=== PATIENT | female | born 1965 | race American Indian/Alaskan Native ===

== ENCOUNTER 2023-02-22 13:24 | Outpatient (AMB) | payer OTHER, SELFPAY ==
--- NOTE | 2023-02-22 14:20 | MHC.OFFWIV ---
Intake Vital Signs 02/22/23 14:26 Height 5 ft 6.5 in Weight 200 lb BMI 31.8 BP 110/62 Blood Pressure Location Rt brachial Position Sitting Pulse 81 Pulse Source Pulse Oximeter Temp 96.7 F L Temp Source Temporal Artery Scan Pulse Oximetry (%) 97 Oxygen Delivery Method Room Air Intake Visit Reasons: EP, RTW Allergies Sulfa (Sulfonamide Antibiotics) Adverse Reaction (Intermediate, Verified 02/22/23 14:26) Unknown Do you need a note to return to daycare/school/sports/work: Yes HPI HPI Comments History of Present Illness Details The patient is to urgent care for evaluation after a recent illness. She states that over the weekend she had cold and sinus congestion. She called out from work for 3 days. COVID test at home x2 negative. She reports that her employer requires a return to work note after 3 consecutive days out. Patient asymptomatic now. Physical Exam Vital Signs: Last Vital Signs Temp 96.7 F L 02/22/23 14:26 Pulse 81 02/22/23 14:26 BP 110/62 02/22/23 14:26 Pulse Ox 97 02/22/23 14:26 Oxygen Delivery Method Room Air 02/22/23 14:26 BMI result Body Mass Index 31.8 Const General: healthy appearing and no acute distress Orientation/consciousness: patient oriented x3 Eyes Corneas: corneas normal Pupils: Equal, round and reactive pupils present Resp Effort & Inspection: normal respiratory effort and able to speak in complete sentences Neuro General: patient oriented x3 Cranial nerves: Yes Equal, round and reactive pupils present Psych Appearance: grossly normal Attitude: cooperative Assessment & Plan Assessment & Plan (1) Return to work exam: Code(s): Z76.89 - Persons encountering health services in other specified circumstances Plan Patient well-appearing and stable for outpatient management and return to work. Coding Level of Care Code Est Pt Level 3 (00734) Diagnoses Return to work exam Z76.89
[2023-02-22 14:26] VITALS: BP 110/62; PULSE 81; TEMP 35.9; O2SAT 97; BMI 31.8
== END 2023-02-22 14:58 | disposition home or self-care (01) ==
PROVIDERS: Visit Provider Emergency Medicine
DX: Z76.89 Persons encountering health services in other specified circumstances (principal)
CPT/HCPCS: 99213

== ENCOUNTER 2023-11-09 14:32 | Emergency (ER) | payer OTHER, SELFPAY ==
[2023-11-09 14:34] VITALS: BP 155/82; PULSE 87; RESP 16; TEMP 36.6; O2SAT 96; BMI 32.0
--- NOTE | 2023-11-09 14:36 | ED.GENADULT ---
[facility] - General Adult General Chief complaint: General Medical Stated complaint: roof of mouth bleeding Time Seen by Provider: 11/09/23 15:19 Source: patient Mode of arrival: ambulatory Limitations: no limitations History of Present Illness ED Provider: Arti DE LEON narrative: Patient is a 58-year-old female with 40-pack year history of smoking, quit 2-3 years ago presenting to the emergency department with complaint of bleeding from her hard palate for the past 3 days. States on Sunday she noted a fluctuant area to the roof of her mouth. Sunday the area began to bleed spontaneously but she was able to get the bleeding to stop by placing gauze on the area. States the bleeding began again and was able to stop the bleeding again spontaneously with gauze. Reports 3rd episode of bleeding today which prompted her to come to the emergency department. Denies any pain or discomfort to the area. Does not currently have a dentist and has not seen 1 in many years. She has not anticoagulated. Denies any other symptoms. Has been using nicotine gum. complaint: hard palate bleeding Onset (ago): day(s) Location: mouth Associated symptoms: denies other symptoms Treatments prior to arrival: none Related Data Home Medications ?Medication ?Instructions ?Recorded ?Confirmed No Known Home Meds 02/22/23 02/22/23 Allergies Allergy/AdvReac Type Severity Reaction Status Date / Time Sulfa (Sulfonamide AdvReac Intermediate Unknown Verified 11/09/23 14:40 Antibiotics) Review of Systems Review of Systems: Yes all other systems are reviewed and are negative Constitutional: Constitutional: Reports as per [facility] Social History Social History Advance Directives: No Advance Directives Information Provided: No Do you have a plan to hurt others: No Plan Physical Exam ED Vital Signs: Vital Signs - 24 hr 11/09/23 14:34 11/09/23 17:39 11/09/23 18:14 Temperature 97.9 F 98.5 F 98.5 F Pulse Rate 87 65 65 Respiratory Rate 16 20 20 Blood Pressure 155/82 H 125/74 125/74 Pulse Oximetry 96 97 97 Oxygen Delivery Method Room Air BMI result Body Mass Index 32.0 Vital signs have been reviewed and appear to be correct. Blood pressure elevated. Heart rate normal. Respiratory rate normal. Temperature normal. Oxygen saturation normal. Const General: cooperative, healthy appearing and no acute distress Orientation/consciousness: oriented to person, oriented to place, oriented to time and patient oriented x3 Limitations: no limitations HENMT Head: Yes normocephalic and Yes atraumatic Ears: external ears normal General nose exam: Normal external nose present Face and sinus: Yes face symmetric Mouth: oropharynx normal and moist mucous membranes Mouth/tongue images: 1. 2-3mm erythematous macule to hard palate not actively bleeding, no fluctuance, no surrounding erythema Throat: Yes uvula midline Eyes Pupils: Equal, round and reactive pupils present Neck Neck: Yes normal visual inspection and Yes supple Resp Effort & Inspection: normal respiratory effort and able to speak in complete sentences Auscultation: clear to auscultation bilaterally Cardio Rate: regular rate Rhythm: regular rhythm Heart sounds: S1 normal heart sound present and S2 normal heart sound present GI Palpation (GI): Soft to palpation and nontender Auscultation: normoactive bowel sounds General: Yes no CVA tenderness Back/Spine/Pelvis Back: no CVA tenderness Skin General skin exam: elasticity normal and turgor normal Neuro General: oriented to person, oriented to place, oriented to time, patient oriented x3, moves all extremities, no focal motor deficits and CN's II-XI intact bilaterally Cranial nerves: Yes Equal, round and reactive pupils present Cognition (Neuro): normal cognition Extrem General: Yes full ROM, Yes no pedal edema and Yes no calf tenderness Psych Mental Status: mental status grossly normal Affect: normal affect Thought process: Normal thought process present Course Course Course Narrative: RME performed by Jil Merino PA-C. Patient is a 58 year old assigned female at presenting to the emergency department with bleeding on the roof of his mouth. Patient states that 2 days ago she felt a squishy type thing on the roof of her mouth and then it ruptured and now will not stop bleeding. Patient states that she applies gauze to the area and it slows but she can't get it to stop. Patient is not on any blood thinners and does not have any medical problems. Detailed physical exam and review of systems are deferred to the jail manager. Patient placed back in the waiting room pending room availability. Medications Administered Discontinued Medications Generic Name Dose Route Start Last Admin Trade Name Freq PRN Reason Stop Dose Admin Lidocaine/Epinephrine 10 ml 11/09/23 16:44 11/09/23 16:53 Lidocaine Hcl 1%/Epi 1:100,000 10 Ml Vial INFILTRATI 11/09/23 16:45 10 ml ONCE ONE Administration Procedures Procedure Narrative Procedure Narrative: The patient had a small lesion on her hard palate which has been bleeding frequently over the last couple of days. The lesion was not bleeding at the time that I examined the patient. Nevertheless I felt that cauterization of this lesion might be appropriate given the patient's description of significant episodes of bleeding. After verbal consent was obtained from the patient I injected around the small lesion with 1% lidocaine with epinephrine with a 30 gauge needle. After achieving anesthesia I used a cautery stick to cauterize the lesion. I did not provoke any bleeding. I did not do a great deal cautery or cauterize with significant pressure or cauterize deeply. The patient tolerated the procedure well. She was observed for a period of time after the procedure. There was no recurrence of bleeding. -- Dr. Unger Medical Decision Making Medical Decision Making [facility] Narrative: Patient is a 58-year-old female with 40-pack year history of smoking, quit 2-3 years ago presenting to the emergency department with complaint of bleeding from her hard palate for the past 3 days. On exam patient is awake, A+Ox3, VS WNL, afebrile, normal neurological exam without focal deficits, physical exam findings as above. Given reported symptoms and physical exam findings, initial differential includes adverse effect of nicotine gum, frictional keratosis, hemmoragic blood vessel. No active bleeding on initial exam, patient stating that if she eats or drinks the bleeding will reoccur. Case discussed with Dr. Unger who also evaluated and treated patient. After cauterization by Dr. Unger, patient was able to eat and drink without bleeding. Will provide patient with list of dental clinics as well as ENT referral. Return precautions discussed at bedside. Patient verbalized understanding of and agreement with plan. Differential Diagnosis Differential Diagnoses: The differential diagnosis associated with the presentation includes As per [facility] External Record Review External record reviewed: Inpatient record, Office record and Outpatient record Discharge Plan Discharge Clinical Impression: Palate abnormality Patient Disposition: Home, Self-Care Additional Instructions: You were evaluated in the emergency department today for bleeding from your hard palate. The bleeding was controlled with medications in the emergency department. We recommend that you follow-up with a dentist or an Ear, Nose, and Throat specialist as soon as possible for further evaluation and management. Return to the emergency department if you develop uncontrolled bleeding, increasing pain, swelling, difficulty swallowing or any other concerning symptoms. Call or visit any of the clinics below to establish care with a dentist: [facility] [address] [place] [address] [facility] [address] [facility], [address] [address] [place] [address] [facility] [address] [address] [facility] [address] [place], [place] [id number] [address] [place] [address] Prescriptions: No Action No Known Home Meds Referrals: David Landaverde [Physician] - Interventions: ED Discharge Assessment Last Done: 11/09/23 18:14 Discharge Date/Time: 11/09/23 18:14 Print Language: Hebrew
[2023-11-09] MEDS: Lidocaine HCl 1%/Epi 1:100,000 10 ML VIAL INFILTRATI (16:53)
[2023-11-09 17:39] VITALS: BP 125/74; PULSE 65; RESP 20; TEMP 36.9; O2SAT 97
[2023-11-09 18:14] VITALS: BP 125/74; PULSE 65; RESP 20; TEMP 36.9; O2SAT 97
== END 2023-11-09 18:14 | disposition home or self-care (01) ==
PROVIDERS: Emergency Provider Emergency Medicine
DX: K13.79 Other lesions of oral mucosa (principal); Z87.891 Personal history of nicotine dependence; Z79.899 Other long term (current) drug therapy
CPT/HCPCS: 17250; 99283; 99284